=== PATIENT | male | born 1950 | race Caucasian/White ===

== ENCOUNTER → 2016-10-28 | Outpatient (CLI) | payer BC | LOC: FS 09:59 | PROVIDERS: ATTEND Internal Medicine Hematology & Oncology | DX: D68.59 Other primary thrombophilia (principal); I10 Essential (primary) hypertension; Z86.718 Personal history of other venous thrombosis and embolism; Z79.01 Long term (current) use of anticoagulants; Z79.899 Other long term (current) drug therapy | CPT/HCPCS: 99213 ==

== ENCOUNTER 2017-10-27 09:18 | Outpatient (RCR) | payer MEDICARE, OTHER | END 2017-11-20 | disposition home or self-care (01) | LOC: ONC 09:18 | PROVIDERS: ATTEND Internal Medicine Hematology & Oncology | DX: D68.51 Activated protein C resistance (principal); K55.20 Angiodysplasia of colon without hemorrhage; I10 Essential (primary) hypertension; F41.9 Anxiety disorder, unspecified; F32.9 Major depressive disorder, single episode, unspecified; Z86.718 Personal history of other venous thrombosis and embolism; Z79.01 Long term (current) use of anticoagulants; Z79.899 Other long term (current) drug therapy | CPT/HCPCS: 99213 ==

== ENCOUNTER → 2018-11-01 | Outpatient (CLI) | payer MEDICARE, OTHER | LOC: EDSTATUS 12-21 16:51 → ONC 09:34 | PROVIDERS: ATTEND Internal Medicine Hematology & Oncology | DX: D68.51 Activated protein C resistance (principal); K55.20 Angiodysplasia of colon without hemorrhage; I10 Essential (primary) hypertension; F41.9 Anxiety disorder, unspecified; F32.9 Major depressive disorder, single episode, unspecified; Z86.718 Personal history of other venous thrombosis and embolism; Z79.01 Long term (current) use of anticoagulants; Z79.899 Other long term (current) drug therapy | CPT/HCPCS: 99213 ==

== ENCOUNTER 2019-01-27 08:34 | Outpatient (CLI) | payer MEDICARE, OTHER ==
[~2019-01-27] VITALS: Ht 167 cm; Wt 89.9 kg
[2019-01-27] MEDS ORDERED: METF-397 PO (08:57)
[2019-01-27] MEDS ORDERED: PARO20TA5 PO (08:57)
[2019-01-27] MEDS ORDERED: RIVA10TA PO (08:57)
[2019-01-27] MEDS ORDERED: PARO-49 PO (08:57)
[2019-01-27] MEDS ORDERED: CETI10TA17 PO (08:57)
[2019-01-27] MEDS ORDERED: BENA40TA5 PO (08:57)
[2019-01-27] MEDS ORDERED: ALPR0.5T7 PO (08:57)
[2019-01-27 09:05] VITALS: BP 150/88
[2019-01-27 09:43] LABS: BASOPHILS % (AUTO) 0 % (0-10); EOSINOPHILS # (AUTO) 0.2 10^3/uL (0.0-0.3); EOSINOPHILS % (AUTO) 3 % (0-10); HEMATOCRIT 44 % (40-54); HEMOGLOBIN 14.9 G/DL (13.3-17.7); LYMPHOCYTES # (AUTO) 0.7 X 10^3 (1.0-4.0); LYMPHOCYTES % (AUTO) 15 % (12-44); MEAN CORPUSCULAR HEMOGLOBIN 30 PG (25-34); MEAN CORPUSCULAR HGB CONC 34 G/DL (32-36); MEAN CORPUSCULAR VOLUME 89 FL (80-99); MEAN PLATELET VOLUME 9.6 FL (7.4-10.4); MONOCYTES # (AUTO) 0.5 X 10^3 (0.0-1.0); MONOCYTES % (AUTO) 11 % (0-12); NEUTROPHILS # (AUTO) 3.3 X 10^3 (1.8-7.8); NEUTROPHILS % (AUTO) 71 % (42-75); PLATELET COUNT 200 10^3/uL (130-400); RED CELL DISTRIBUTION WIDTH 13.4 % (10.0-14.5); WHITE BLOOD COUNT 4.7 10^3/uL (4.3-11.0)
[2019-01-27 10:02] LABS: BUN/CREATININE RATIO 19; CALCIUM 8.8 MG/DL (8.5-10.1); CARBON DIOXIDE 22 MMOL/L (21-32); CHLORIDE 108 MMOL/L (98-107); CREATININE SERUM 0.81 MG/DL (0.60-1.30); GFR ESTIMATED > 60; GLUCOSE 114 MG/DL (70-105); POTASSIUM 4.1 MMOL/L (3.6-5.0); SODIUM 140 MMOL/L (135-145)
== END 2019-01-27 11:00 ==
LOC: PREOP 08:34
PROVIDERS: ATTEND Otolaryngology Otolaryngology/Facial Plastic Surgery
DX: H93.92 Unspecified disorder of left ear (principal)
CPT/HCPCS: 36415; 80048; 85025; 87081; 93005

== ENCOUNTER → 2019-11-07 | Outpatient (CLI) | payer MEDICARE, OTHER ==
[~2019-11-07] MED LIST: ACHD5005 PO; ALPR0.5T7 PO; BENA40TA5 PO; CEPH-507 PO; CETI10TA17 PO; METF-397 PO; PARO-49 PO; PARO20TA5 PO; RIVA10TA PO
== END ==
LOC: ONC 09:17
PROVIDERS: ATTEND Internal Medicine Hematology & Oncology
DX: D68.51 Activated protein C resistance (principal); K55.20 Angiodysplasia of colon without hemorrhage; E11.9 Type 2 diabetes mellitus without complications; K55.059 Acute (reversible) ischemia of intestine, part and extent unspecified; I10 Essential (primary) hypertension; Z79.01 Long term (current) use of anticoagulants; Z98.890 Other specified postprocedural states
CPT/HCPCS: 99213

== ENCOUNTER → 2020-11-06 | Outpatient (CLI) | payer MEDICARE, OTHER | LOC: ONC 09:23 | PROVIDERS: ATTEND Internal Medicine Hematology & Oncology | DX: D68.51 Activated protein C resistance (principal); I82.890 Acute embolism and thrombosis of other specified veins; K55.20 Angiodysplasia of colon without hemorrhage; E11.9 Type 2 diabetes mellitus without complications; I10 Essential (primary) hypertension; E66.9 Obesity, unspecified | CPT/HCPCS: 99213 ==

== ENCOUNTER 2021-01-11 10:36 | Outpatient (CLI) | payer MEDICARE, OTHER ==
[~2021-01-11] VITALS: Ht 170.2 cm; Wt 88.0 kg
[2021-01-11 10:30] VITALS: BP 160/85
[2021-01-11 10:35] VITALS: BP 160/85
[2021-01-11] MEDS ORDERED: EPINEPHrine INJECTION 1 MG/ML AMP IM PRN (10:45)
[2021-01-11] MEDS ORDERED: ONDANSETRON 4 MG/2 ML (SDV) Z0FRAN IV PRN (10:45)
[2021-01-11] MEDS ORDERED: diphenhydrAMINE 50 MG/ML INJ (BENADRYL) IV PRN (10:45)
[2021-01-11] MEDS ORDERED: ACETAMINOPHEN 500 MG TAB (TYLENOL) PO PRN (10:45)
[2021-01-11] MEDS ORDERED: CASIRIVIMAB/IMDEVIMAB 1,200 MG in NS (IVPB) 250 ML IV ONE (10:45)
[2021-01-11 12:01] VITALS: BP 144/86
== END 2021-01-11 12:40 | disposition home or self-care (01) ==
LOC: INFUSION 10:36
PROVIDERS: ATTEND Family Medicine
DX: U07.1 COVID-19 (principal)